=== PATIENT | female | born 1995 | race Caucasian/White ===

== ENCOUNTER 2017-12-28 15:01 | Emergency (ER) | payer MEDICAID ==
[~2017-12-28] VITALS: Ht 165.1 cm; Wt 67.6 kg
[2017-12-28 15:01] VITALS: BP 103/67
[2017-12-28] MEDS ORDERED: IBUPROFEN 600 MG TABLET PO ONE ×2 (15:30→15:34)
== END 2017-12-28 16:34 | disposition home or self-care (01) ==
LOC: ER 15:04
DX: J02.9 Acute pharyngitis, unspecified (principal); J45.909 Unspecified asthma, uncomplicated; F10.10 Alcohol abuse, uncomplicated; Y90.9 Presence of alcohol in blood, level not specified
CPT/HCPCS: 87070; 87880; 99284; A4606; Z7610; 86403-TC